=== PATIENT | male | born 1960 ===

== ENCOUNTER → 2022-12-25 | Outpatient (CLI) | payer OTHER ==
[~2022-12-25] VITALS: Ht 170.2 cm; Wt 61.0 kg
[2022-12-25 08:19] VITALS: BP 103/55
== END | disposition home or self-care (01) ==
LOC: SRCNTR 08:16
PROVIDERS: ATTEND Internal Medicine
DX: J44.9 Chronic obstructive pulmonary disease, unspecified (principal); G47.33 Obstructive sleep apnea (adult) (pediatric); R07.9 Chest pain, unspecified; R56.9 Unspecified convulsions
CPT/HCPCS: G0463; Z7500